=== PATIENT | male | born 2005 | race Caucasian/White ===

== ENCOUNTER 2025-02-28 12:40 | Emergency (ER) | payer BC ==
[2025-02-28 13:47] LABS: #Basophils 0.07 10x3/uL (0.0-0.2); #Eosinophils 0.68 10x3/uL (0.0-0.5); #Monocytes 0.80 10x3/uL (0.0-1.1); #Neutrophils 3.47 10x3/uL (1.5-8.4); %Basophils 0.9 % (0.0-2.0); %Eosinophils 8.9 % (0.0-6.0); %Lymphocytes 34.3 % (18.0-47.0); %Monocytes 10.4 % (0.0-10.0); %Neutrophils 45.2 % (40.0-75.0); Hematocrit 45.9 % (38.8-50.0); Hemoglobin 15.7 g/dL (13.5-17.5); Mean Corpuscular Hemoglobin 30.3 pg (27.0-33.0); Mean Corpuscular Volume 88.6 fL (81.2-95.1); Platelet Count 221 10x3/uL (150-450); Red Blood Cell (RBC) Count 5.18 10x6/uL (4.32-5.72); White Blood Cell (WBC) Count 7.67 10x3/uL (3.5-10.5)
[2025-02-28 14:08] LABS: ALT (SGPT) 16 U/L (Less than 45); AST (SGOT) 24 U/L (11-34); Albumin 4.6 g/dL (3.1-4.5); Alkaline Phosphatase 65 U/L (40-110); Anion Gap 10 mmol/L (10-20); BUN (Urea Nitrogen) 11 mg/dL (8.9-20.6); Bilirubin, Total 1.2 mg/dL (0.3-1.2); Calc. Creatinine Clearance 0 mL/min (70-130); Calcium 9.5 mg/dL (7.8-10.44); Carbon Dioxide 26 mmol/L (22-29); Chloride 105 mmol/L (98-107); Globulin 2.6 g/dL (2.4-3.5); Glucose 92 mg/dL (70-105); Lipase 15 U/L (8-78); Potassium 3.8 mmol/L (3.5-5.1); Sodium 137 mmol/L (136-145)
[2025-02-28 15:21] LABS: Glucose, Urine (Dipstick) Normal (Negative); Leukocyte Negative (Negative); Protein, Urine (Dipstick) Negative (Neg-Trace); Specific Gravity, Urine 1.010 (1.005-1.030)
[2025-02-28 15:30] LABS: Bacteria/HPF None Seen HPF (None Seen); CAUTI Indications for Culture Pelvic or flank pain; RBC/HPF None Seen HPF (0-3); WBC/HPF 0-3 HPF (0-3)
[2025-02-28 15:31] LABS: Urine Culture Reflex No No
== END 2025-02-28 18:44 | disposition home or self-care (01) ==
LOC: CSHERS 12:40
DX: R10.9 Unspecified abdominal pain (principal); F17.200 Nicotine dependence, unspecified, uncomplicated
CPT/HCPCS: 36415; 74177; 80053; 81001; 83690; 85025